=== PATIENT | female | born 1985 | race Caucasian/White ===

== ENCOUNTER → 2016-06-26 | Outpatient (CLI) | payer OTHER ==
--- NOTE | 2016-06-26 20:18 | REP ---
Clinical: Anatomical evaluation. Comparison: None . Findings: Examination demonstrates a single live intrauterine in variable presentation. motion is identified by technologist. Placenta is noted fundal and grade zero without evidence for placenta previa or abruption. Amniotic fluid volume is normal. Cervix measures 4.8 cm in length and appears closed. No evidence for nuchal cord. Gestational age by LMP 19 weeks 2 days with [facility] 11/18/2016 . Gestational age by current measurements 20 weeks 1 day with [facility] 11/12/2016 . FHR equals 153 beats per minute. BPD 4.7 cm 20 weeks 2 days HC 17.5 cm 20 weeks 0 days AC 15.7 cm 20 weeks 6 days FL 3.1 cm 19 weeks 4 days HL 3.0 cm 20 weeks 0 days HC/AC ratio 1.11 Estimated weight 340 grams ( 82nd percentile). Anatomical assessment demonstrates normal structures including cranium, choroid plexus, cavum, cerebellum/posterior fossa, facial features, lungs, four-chamber heart/ventricular outflow tracts, diaphragm, stomach, cord insertion/three-vessel cord, kidneys/bladder, spine, and extremities. Impression: 1. Single live intrauterine in variable presentation demonstrating appropriate interval growth. 2. Anatomical assessment is complete and normal. Signed by Kevin Tillman MD 06/26/2016 08:10 P
== END ==
LOC: M RAD 16:33
PROVIDERS: ATTEND Obstetrics & Gynecology
DX: Z36 Encounter for antenatal screening of mother (principal); Z3A.20 20 weeks gestation of pregnancy

== ENCOUNTER → 2016-07-16 | Outpatient (CLI) | payer OTHER ==
[2016-07-16 18:44] LABS: FREE T4 0.78 NG/DL (0.76-1.46)
== END ==
LOC: M SMT 11:24
PROVIDERS: ATTEND Specialist
DX: R53.83 Other fatigue (principal)

== ENCOUNTER → 2016-08-28 | Outpatient (CLI) | payer OTHER ==
[2016-08-28 19:15] LABS: BASO % 0.2 % (0.0-1.0); EOS # 0.1 K/mm3 (0.0-0.50); EOS % 0.7 % (0.0-3.0); LARGE UNSTAINED CELL # 0.1 K/mm3 (0.0-0.4); LARGE UNSTAINED CELL % 0.7 % (0.0-4.0); LYMPH % 14.6 % (24.0-44.0); MEAN CORPUSCULAR HEMOGLOBIN 33.4 pg (27.0-33.0); MONO # 0.5 K/mm3 (0.0-0.8); MONO % 3.4 % (0.0-5.0); NEUTROPHILS % 80.4 % (36.0-66.0); PLATELET COUNT, AUTOMATED 290 k/mm3 (150-450); RED CELL DISTRIBUTION WIDTH 13.1 % (11.5-14.5); WHITE BLOOD COUNT 13.7 K/mm3 (4.0-10.0)
== END ==
LOC: M WUC 15:38
PROVIDERS: ATTEND Specialist
DX: Z36 Encounter for antenatal screening of mother (principal); Z3A.00 Weeks of gestation of pregnancy not specified

== ENCOUNTER → 2016-09-16 | Outpatient (REF) | payer OTHER | LOC: M LAB REF 16:23 | PROVIDERS: ATTEND Physician Assistant | DX: J02.9 Acute pharyngitis, unspecified (principal) ==

== ENCOUNTER → 2016-10-23 | Outpatient (REF) | payer OTHER ==
[~2016-10-23] MED LIST: ACET50TA PO; IBUP-1114 PO; PRENTAB9 PO
== END ==
LOC: M LAB REF 16:49
PROVIDERS: ATTEND Specialist
DX: Z34.83 Encounter for supervision of other normal pregnancy, third trimester (principal)

== ENCOUNTER 2016-11-16 10:43 | Inpatient (IN) | payer OTHER, MEDICAID ==
[~2016-11-16] VITALS: Ht 160 cm; Wt 88.0 kg
[2016-11-16] VITALS (8 sets, daily range): BP systolic 114–168; BP diastolic 62–98
[2016-11-16] MEDS ORDERED: PRENTAB9 PO (10:57)
[2016-11-16 13:37] LABS: MEAN CORPUSCULAR HEMOGLOBIN 32.6 pg (27.0-33.0); MEAN CORPUSCULAR HGB CONC 34.1 g/dl (32.0-36.5); MEAN CORPUSCULAR VOLUME 95.5 fl (80.0-96.0); RED CELL DISTRIBUTION WIDTH 13.6 % (11.5-14.5)
[2016-11-16] MEDS ORDERED: OXYTOCIN DRIP 30 UNITS in APPROPRIATE DILUENT 1 EA IV SCH (13:45)
[2016-11-16] MEDS ORDERED: LR 1,000 ML IV SCH (13:45)
--- NOTE | 2016-11-16 14:10 | HPE ---
DATE OF ADMISSION: 11/16/2016 A 31-year-old (G) 1, para (P) 0 female at 39-5/7 weeks gestation by last menstrual period (LMP) consistent with eight-week ultrasound, estimated date of confinement (EDC) 11/18/2016 who presents with regular contractions every 3-5 minutes for the last several hours. Denies vaginal bleeding. There is good movement. She thinks she may be leaking a small amount of fluid but is unsure. COURSE: The patient initiated care at eight weeks gestation on 04/10/2016. Her first trimester blood pressure was 122/74, weight 169 pounds. course unremarkable. PAST MEDICAL HISTORY: 1. Frequent urinary tract infections (UTIs). 2. Attention deficit hyperactivity disorder (ADHD). 3. Anxiety and depression. PAST SURGICAL HISTORY: 1. Loop electrosurgical excision procedure (LEEP) in 2008. 2. Tonsillectomy as a child. ALLERGIES: SULFA. SOCIAL HISTORY: The patient denies cigarettes, alcohol or drug use during . Father of the baby is involved. FAMILY HISTORY: Noncontributory. PHYSICAL EXAMINATION: Blood pressure 126/84, pulse 84. She appears uncomfortable. Head and neck examination is normal. Lungs are clear. Heart regular rate and rhythm. Abdomen nontender, gravid. heart tone category 1. Sterile vaginal examination: 2 cm, 80% effaced, -2 station, posterior, soft, vertex. Contractions every 2-4 minutes. LABORATORY DATA: Blood type A positive. Rubella immune, RPR nonreactive. GBS negative on 10/23/2016. ASSESSMENT: A 31-year-old (G) 1 female at 39-5/7 weeks gestation who presents in early labor. The patient was admitted on 11/16/2016.
[2016-11-16] MEDS ORDERED: FENTANYL 2MCG/ML ROPIVACAINE 0.2% IN 0.9% NACL 200ML IVBAG As Ordered ONE (16:03)
[2016-11-16] MEDS ORDERED: EPIDURAL/PCA KEYS XX PRN (18:00)
[2016-11-16] MEDS ORDERED: ONDANSETRON 4MG/2ML VIAL (J2405) IV PRN (18:00)
[2016-11-16] MEDS ORDERED: FENTANYL/ROPIVACAINE/NACL BAG 200 ML EPIDURAL SCH (18:00)
[2016-11-16] MEDS ORDERED: LACTATED RINGER'S 1000 ML IV PRN (18:00)
[2016-11-16] MEDS ORDERED: diphenhydrAMINE INJ 50MG/ML VIAL (J1200) IV PRN (18:00)
[2016-11-16] MEDS ORDERED: REFRIGERATOR IV KEYS XX PRN (18:00)
[2016-11-16] MEDS ORDERED: ePHEDrine SULFATE 25 MG/5 ML(5MG/ML) SYRINGE IV PRN (18:00)
[2016-11-16] MEDS ORDERED: NALOXONE INJ 0.4 MG/1 ML VIAL (J2310) IV PRN (18:00)
[2016-11-16] MEDS ORDERED: EPIDURAL COMMENT XX SCH (18:00)
[2016-11-17 00:10] VITALS: BP 133/70
[2016-11-17 00:24] VITALS: BP 129/68
[2016-11-17] MEDS ORDERED: MEASLES,MUMPS,RUBELLA VACCINE INJ (MMR-II) (90707) SC SCH (00:30)
[2016-11-17] MEDS ORDERED: OXYTOCIN DRIP 30 UNITS in APPROPRIATE DILUENT 1 EA IV ONE (00:30)
[2016-11-17] MEDS ORDERED: DOCUSATE SODIUM 100 MG CAP PO PRN (00:30)
[2016-11-17] MEDS ORDERED: RHOGAM 300 MCG (1500 IU) INJ (J2790) IM SCH (00:30)
[2016-11-17] MEDS ORDERED: ONDANSETRON 4MG/2ML VIAL (J2405) IV PRN (00:30)
[2016-11-17] MEDS ORDERED: DIBUCAINE 1% OINTMENT 30GM TOP PRN (00:30)
[2016-11-17] MEDS ORDERED: METHYLERGONOVINE MALEATE 0.2 MG TAB PO PRN (00:30)
[2016-11-17 00:39] VITALS: BP 119/72
[2016-11-17] MEDS: IBUPROFEN 800 MG TAB PO PRN ×3 (02:32→20:42)
[2016-11-17 02:36] VITALS: BP 133/67
[2016-11-17 06:21] VITALS: BP 117/56
[2016-11-17] MEDS: PRENATAL VITAMINS CHEWABLE TABLET PO SCH (08:09)
[2016-11-17 18:01] VITALS: BP 116/65
[2016-11-17] MEDS: ACETAMINOPHEN 500 MG TAB PO PRN (20:42)
[2016-11-18] MEDS: ACETAMINOPHEN 500 MG TAB PO PRN (05:54)
[2016-11-18] MEDS: IBUPROFEN 800 MG TAB PO PRN (05:54)
[2016-11-18 05:59] VITALS: BP 132/84
[2016-11-18] MEDS ORDERED: ACET50TA PO (08:16)
[2016-11-18] MEDS ORDERED: IBUP-1114 PO (08:16)
[2016-11-18] MEDS: PRENATAL VITAMINS CHEWABLE TABLET PO SCH (09:14)
--- NOTE | 2016-11-18 22:05 | DN ---
DATE: 11/16/2016 PREDELIVERY DIAGNOSIS: 39+ weeks, labor. POSTDELIVERY DIAGNOSIS: Delivered. PROCEDURE: Spontaneous vaginal delivery. CITY SURVEYOR: Dr. Marco Soliz ANESTHESIA: Epidural. ESTIMATED BLOOD LOSS: 300 mL. FINDINGS: 7 pounds 6 ounce female infant. scores 8 and 9. DELIVERY SUMMARY: After 1 hour and 20 minute second stage, the patient spontaneously delivered a 7 pounds 6 ounce female with scores of 8 and 9 under epidural anesthesia. Loose nuchal cord times one was reduced. Left compound arm was reduced. The shoulders delivered with ease. The infant cried spontaneously and was handed to the mother. The cord was doubly clamped and cut. Placenta was manually extracted after being retained and appearing to be adherent for approximately 30 minutes. Single cotyledon was noted to be adherent at the fundus. The single cotyledon, which was adherent was removed in several fragments. The uterus was deemed to be empty at that point. The patient received IV Pitocin immediately after delivering the placenta. First degree vaginal laceration was closed with #2-0 chromic in the usual fashion. Sponge and needle counts were correct.
== END 2016-11-18 11:15 | disposition home or self-care (01) | DRG 767 ==
LOC: M LDO 10:43 → M LDI 11:29 → M OBS 11-17 02:34
PROVIDERS: ADMIT Specialist; ATTEND Specialist
PROC: 10D17ZZ Extraction of Products of Conception, Retained, Via Natural or Artificial Opening (ICD-10-PCS; principal; 2016-11-16)
PROC: 10E0XZZ Delivery of Products of Conception, External Approach (ICD-10-PCS; 2016-11-16)
PROC: 0HQ9XZZ Repair Perineum Skin, External Approach (ICD-10-PCS; 2016-11-16)
DX: O69.82X0 Labor and delivery complicated by other cord entanglement, without compression, not applicable or unspecified (principal); Z37.0 Single live birth; O73.0 Retained placenta without hemorrhage; Z3A.39 39 weeks gestation of pregnancy; O32.6XX0 Maternal care for compound presentation, not applicable or unspecified; O70.0 First degree perineal laceration during delivery

== ENCOUNTER → 2017-05-26 | Outpatient (REF) | payer OTHER | LOC: M SFHCLERA 09:37 | DX: J02.9 Acute pharyngitis, unspecified (principal) ==

== ENCOUNTER → 2017-12-21 | Outpatient (REF) | payer OTHER | LOC: M SFHCLERA 17:58 | DX: J01.10 Acute frontal sinusitis, unspecified (principal) ==

== ENCOUNTER → 2018-02-02 | Outpatient (REF) | payer OTHER ==
[2018-02-05 14:35] LABS: HPV HYBRID CAPTURE II Negative (Negative)
== END ==
LOC: M LAB REF 13:40
DX: Z12.4 Encounter for screening for malignant neoplasm of cervix (principal)

== ENCOUNTER → 2018-04-13 | Outpatient (REF) | payer OTHER ==
[~2018-04-13] MED LIST changes: -ACET50TA PO; +MAPA500T2 PO
[2018-04-13 12:00] LABS: INFLUENZA A AMPLIFICATION NEGATIVE (NEGATIVE); INFLUENZA B AMPLIFICATION NEGATIVE (NEGATIVE)
== END ==
LOC: M LAB REF 11:03
PROVIDERS: ATTEND Physician Assistant Medical
DX: J11.1 Influenza due to unidentified influenza virus with other respiratory manifestations (principal)

== ENCOUNTER → 2019-11-17 | Outpatient (REF) | payer OTHER | LOC: M LAB REF 15:09 | PROVIDERS: ATTEND Specialist | DX: Z12.4 Encounter for screening for malignant neoplasm of cervix (principal) | CPT/HCPCS: 87624; G0123 ==

== ENCOUNTER → 2019-12-10 | Outpatient (CLI) | payer OTHER ==
[2019-12-10 18:07] LABS: FREE T3 2.9 PG/ML (2.2-4.0); FREE T4 1.11 NG/DL (0.76-1.46); THYROID STIMULATING HORMONE 1.98 uIU/ML (0.358-3.740)
== END ==
LOC: M WUC 13:12
PROVIDERS: ATTEND Anesthesiology Pain Medicine
DX: E03.9 Hypothyroidism, unspecified (principal)

== ENCOUNTER → 2021-02-07 | Outpatient (REF) | payer OTHER | LOC: M SFHCWAGY 13:27 | PROVIDERS: ATTEND Specialist | DX: Z01.419 Encounter for gynecological examination (general) (routine) without abnormal findings (principal) ==

== ENCOUNTER → 2022-09-22 | Outpatient (REF) | payer OTHER | LOC: M SFHCWAGY 13:07 | PROVIDERS: ATTEND Specialist | DX: Z01.419 Encounter for gynecological examination (general) (routine) without abnormal findings (principal); Z77.9 Other contact with and (suspected) exposures hazardous to health; Z12.4 Encounter for screening for malignant neoplasm of cervix ==